=== PATIENT | male | born 1980 | race Two or more races ===

== ENCOUNTER 2019-08-13 00:40 | Observation (INO) | payer OTHER ==
[~2019-08-13] VITALS: Ht 167.6 cm; Wt 80.5 kg
--- NOTE | 2019-08-13 01:23 | NUR ---
Patient was seen today by [facility] for L flank pain. Patient was medicated at that time. Patient currently denies pain.
[2019-08-13 01:48] LABS: MICROSCOPIC INDICATED
[2019-08-13] MEDS ORDERED: PLEASE ENTER ALLERGIES MC SCH (02:30)
[2019-08-13] MEDS ORDERED: PROMETHAZINE 25 MG/ML, 1ML IM PRN (02:30)
[2019-08-13] MEDS ORDERED: hydrALAzine 20 MG/ML, 1ML IVPush PRN (02:30)
[2019-08-13] MEDS ORDERED: ONDANSETRON 2MG/ML, 2ML IVPush PRN (02:30)
[2019-08-13] MEDS ORDERED: LABETALOL 5 MG/ML SYR. (IV ONLY) IVPush PRN (02:30)
[2019-08-13] MEDS ORDERED: morphine SULFATE 10 MG/ML, 1ML IVPush PRN (02:30)
[2019-08-13] MEDS ORDERED: TAMSULOSIN 0.4 MG CAP.ER.24H PO ONE (02:30)
[2019-08-13 03:39] VITALS: BP 127/71
[2019-08-13] MEDS: CEFTRIAXONE PMX 1GM/50ML 50 ML IV SCH (04:59)
[2019-08-13] MEDS: HEPARIN 5,000 UNITS/ML, 1ML SQ SCH ×3 (05:17→21:00)
[2019-08-13] MEDS: SODIUM CHLORIDE 0.9% 1,000 ML IV SCH ×2 (05:17→14:48)
[2019-08-13 10:30] VITALS: BP 121/81
[2019-08-13 13:55] VITALS: BP 120/79
[2019-08-13] MEDS: OXYcodone/APAP 5/325MG TABLET PO PRN (14:48)
[2019-08-13 19:21] VITALS: BP 114/72
[2019-08-14] MEDS: SODIUM CHLORIDE 0.9% 1,000 ML IV SCH ×2 (00:05→08:00)
[2019-08-14 01:25] VITALS: BP 113/73
[2019-08-14] MEDS: OXYcodone/APAP 5/325MG TABLET PO PRN (04:10)
[2019-08-14] MEDS: CEFTRIAXONE PMX 1GM/50ML 50 ML IV SCH (04:11)
[2019-08-14] MEDS: HEPARIN 5,000 UNITS/ML, 1ML SQ SCH (04:13)
[2019-08-14 05:35] LABS: ALBUMIN 3.1 g/dL (3.4-5.0); ANION GAP 5 mmol/L (5-15); CALCIUM 8.4 mg/dL (8.5-10.1); CHLORIDE 113 mmol/L (98-107)
[2019-08-14 05:36] LABS: BASOPHILS # (AUTO) 0.02 x10^3/uL (0-0.1); BASOPHILS % (AUTO) 0 % (0-1); EOSINOPHILS # (AUTO) 0.14 x10^3/uL (0-0.4); EOSINOPHILS % (AUTO) 2 % (1-7); LYMPHOCYTES # (AUTO) 1.83 x10^3/uL (1-3.4); LYMPHOCYTES % (AUTO) 27 % (22-44); MD NO; MEAN CORPUSCULAR HEMOGLOBIN 28.1 pg (27.5-34.5); MEAN CORPUSCULAR HGB CONC 33.3 g/dL (33.2-36.2); MEAN CORPUSCULAR VOLUME 84.6 fL (81-97); MEAN PLATELET VOLUME 8.4 fL (7.4-10.4); MONOCYTES # (AUTO) 0.63 x10^3/uL (0.2-0.8); MONOCYTES % (AUTO) 9 % (2-9); NEUTROPHILS # (AUTO) 4.25 x10^3/uL (1.8-6.8); NEUTROPHILS % (AUTO) 62 % (42-75); PLATELET COUNT 226 x10^3/uL (130-400); RED BLOOD COUNT 4.91 x10^6/uL (4.38-5.82); RED CELL DISTRIBUTION WIDTH 13.2 % (9.4-14.8)
[2019-08-14 05:41] LABS: ALANINE AMINOTRANSFERASE 34 U/L (12-78); ALKALINE PHOSPHATASE 73 U/L (45-117); BILIRUBIN,TOTAL 0.5 mg/dL (0.2-1.0); CREATININE 0.92 mg/dL (0.7-1.3); TOTAL PROTEIN 6.6 g/dL (6.4-8.2)
[2019-08-14] MEDS ORDERED: TAMSULOSIN 0.4 MG CAP.ER.24H PO SCH (09:00)
[2019-08-14 09:16] VITALS: BP 123/80
[2019-08-14] MEDS ORDERED: OXYC-302 PO (10:33)
[2019-08-14] MEDS ORDERED: CEPH-368 PO (10:33)
== END 2019-08-14 11:17 | disposition home or self-care (01) ==
LOC: ED 02:10 → INTOOBSV 02:39 → EDIP 02:39 → 4NW 03:29
PROVIDERS: ADMIT Internal Medicine; ATTEND Hospitalist
DX: N13.6 Pyonephrosis (principal); N39.0 Urinary tract infection, site not specified; K76.89 Other specified diseases of liver; R73.9 Hyperglycemia, unspecified; D72.829 Elevated white blood cell count, unspecified; Z79.899 Other long term (current) drug therapy
CPT/HCPCS: 36415; 76770; 80053; 81001; 85025; 96365; 96366; 96372; 99285; G0378; J0696; J1644; J7030